=== PATIENT | female | born 1980 | race Caucasian/White ===

== ENCOUNTER 2023-02-24 17:55 | Emergency (ER) | payer SELFPAY ==
[2023-02-24 18:07] VITALS: BP 133/84; PULSE 87; RESP 18; TEMP 36.9; O2SAT 100
--- NOTE | 2023-02-24 18:13 | DI.RAD.S_ITS ---
PROCEDURE: XR SHOULDER RT MIN 2V INDICATIONS: unable to move it normal/pain TECHNIQUE: 3 views of the shoulder were acquired. COMPARISON: None. FINDINGS: Bones: No fractures or dislocations. No suspicious bony lesions. Visualized ribs appear intact. Soft tissues: No suspicious soft tissue calcifications. IMPRESSION: No acute bony abnormality. If there are persistent symptoms or clinical suspicion for pathology, then repeat radiographs or advanced imaging (CT or MRI) may be considered for further evaluation. Dictated by: Cristian Hodge M.D. on 02/24/2023 at 19:32 Approved by: Cristian Hodge M.D. on 02/24/2023 at 19:32
--- NOTE | 2023-02-24 19:56 | ED.GENADULT ---
HPI - General Adult General Chief complaint: Extremity Injury, Upper Stated complaint: unable to use R arm/ pain and tingling Time Seen by Provider: 02/24/23 19:47 Source: patient Mode of arrival: Ambulatory History of Present Illness HPI narrative: Patient is a 42-year-old female who is here for evaluation of right upper arm discomfort. She states that it started just a couple hours ago. There was not 1 specific incident. Before the event she was wrestling with her dog but does not remember injuring it. She states that she now has some tingling in her hand. It is uncomfortable for her to move her arm forward and back and out from her body. She has no neck pain. No elbow pain. She took some ibuprofen and put on a lidocaine patch prior to arrival. No prior injuries to the shoulder. No fevers. Related Data Previous Rx's Medication Instructions Recorded cyclobenzaprine 10 mg tablet 10 mg PO TID PRN muscle spasm #10 02/24/23 tabs hydrocodone 5 mg-acetaminophen 325 1 tab PO Q6H PRN pain #10 tabs 02/24/23 mg tablet Allergies Allergy/AdvReac Type Severity Reaction Status Date / Time acetaminophen AdvReac Palpitation Verified 02/24/23 18:07 s Review of Systems Constitutional Constitutional: Reports system reviewed and no additional complaints, except as documented Musculoskeletal Musculoskeletal: Reports system reviewed and no additional complaints, except as documented Integumentary/Breasts Skin/Breast: Reports system reviewed and no additional complaints, except as documented Neurologic Neurologic: Reports system reviewed and no additional complaints, except as documented Patient History Social History Smoking Status: Current every day smoker Smoking Status: Current every day smoker tobacco type: vaping alcohol intake frequency: holidays/special occasions only Substance Use Type: does not use Exam Initial Vital Signs Initial Vital Signs: Vital Signs Temperature 98.4 F 02/24/23 18:07 Pulse Rate 87 02/24/23 18:07 Respiratory Rate 18 02/24/23 18:07 Blood Pressure 133/84 02/24/23 18:07 Pulse Oximetry 100 02/24/23 18:07 Oxygen Delivery Method Room Air 02/24/23 18:07 Const General: cooperative and No ill appearing Cardio Pulses: radial pulses present on the right Back/Spine/Pelvis Other: No cervical tenderness. Skin General: no rashes or lesions noted Neuro Sensory Exam: no sensory deficits noted Extrem Other: Her right wrist and right elbow are unremarkable. She does not have any tenderness along the clavicle or the AC joint. All of her discomfort seems to be located over the deltoid. It hurts for her to abduct her arm both active and passive. She can flex and extend forward and back in the right shoulder passively with minimal discomfort. Internal rotation of the shoulder causes her discomfort over the deltoid. The pain hips down to where the approximate insertion of the deltoid would be on her forearm. Course Orders Ordered: ED Orders 02/24/23 18:13 XR shoulder RT min 2V Stat Discontinued Medications Hydrocodone Bitart/Acetaminophen (Hydrocodone/Acet 5/325 Prepack) 1 bottle MISC DIRECTED ONE Stop: 02/24/23 20:48 Last Admin: 02/24/23 20:57 Dose: 1 bottle Documented By: AP Cyclobenzaprine HCl (Cyclobenzaprine 10 Mg Prepack) 1 bottle MISC DIRECTED ONE Stop: 02/24/23 20:48 Last Admin: 02/24/23 20:57 Dose: 1 bottle Documented By: AP Hydromorphone HCl (Hydromorphone 1 Mg Inj) 1 mg IM NOW ONE Stop: 02/24/23 19:58 Last Admin: 02/24/23 20:02 Dose: 1 mg Documented By: AP Vital Signs Vital signs: Vital Signs - 8 hr 02/24/23 20:26 Temperature 98.4 F Pulse Rate 76 Respiratory Rate 18 Blood Pressure 133/67 Pulse Oximetry 98 Oxygen Delivery Method Room Air Medical Decision Making Imaging Data Extremity x-ray #1: Radiologist's Impression: PROCEDURE: XR SHOULDER RT MIN 2V INDICATIONS: unable to move it normal/pain TECHNIQUE: 3 views of the shoulder were acquired. COMPARISON: None. FINDINGS: Bones: No fractures or dislocations. No suspicious bony lesions. Visualized ribs appear intact. Soft tissues: No suspicious soft tissue calcifications. IMPRESSION: No acute bony abnormality. If there are persistent symptoms or clinical suspicion for pathology, then repeat radiographs or advanced imaging (CT or MRI) may be considered for further evaluation. [facility] Narrative Medical decision making narrative: She is neurovascularly intact. Her x-ray shows no signs of a fracture. Is somewhat difficult to obtain a full exam of the right shoulder because of the discomfort. I have low suspicion for septic joint is her discomfort seems to be located over the outside of the shoulder and specifically over the deltoid. She has not having any biceps tenderness or triceps tenderness she can flex and extend the right elbow without discomfort. I have low suspicion for rotator cuff tear. Was suspicion for an occult fracture she does not have specific trauma. The plan will be is for right now to treat symptomatically and conservatively. She was given a sling that she can use at home as needed. She was given return precautions and follow-up instructions. She expressed understanding and agreement. Discharge Plan Departure Patient Disposition: Home Clinical Impression: Right shoulder pain Instructions: How To Perform RICE (Rest, Ice, Compress, Elevate) Activity Restrictions/Additional Instructions: Recommend using the pain medicine and muscle relaxers and conservative measures such as heat/ice as needed. You can try to use the sling if it is comfortable for you. Avoid activities that make your symptoms worse. Contact your primary doctor for a follow-up. Return to the emergency department for new or worsening symptoms. Prescriptions: New hydrocodone-acetaminophen 5-325 mg tablet 1 tab PO Q6H PRN (Reason: pain) Qty: 10 0RF cyclobenzaprine 10 mg tablet 10 mg PO TID PRN (Reason: muscle spasm) Qty: 10 0RF Referrals: Miscellaneous,Doctor, MD [Primary Care Provider] - Stand Alone Forms: Patient Portal/API
[2023-02-24] MEDS: HYDROMORPHONE 1 MG INJ IM (20:02)
[2023-02-24 20:26] VITALS: BP 133/67; PULSE 76; RESP 18; TEMP 36.9; O2SAT 98
[2023-02-24] MEDS: CYCLOBENZAPRINE 10 MG PREPACK 1 BOTTLE MISC (20:57)
[2023-02-24] MEDS: HYDROCODONE/ACET 5/325 PREPACK 1 BOTTLE MISC (20:57)
== END 2023-02-24 21:04 | disposition home or self-care (01) ==
PROVIDERS: Emergency Provider Emergency Medicine
DX: M25.511 Pain in right shoulder (principal)
CPT/HCPCS: 73030; 96372; 99283; J1170

== ENCOUNTER → 2024-04-13 09:44 | Outpatient (CLI) | payer OTHER, SELFPAY ==
[2024-04-13 10:49] LABS: Influenza A - CEPHEID Flu A POSITIVE (NEGATIVE); Influenza B - CEPHEID Flu B NEGATIVE (NEGATIVE); Respiratory Syncytial Virus Negative (Negative)
[2024-04-13 10:58] LABS: COVID-19 CEPHEID 4-PLEX PCR Negative (Negative)
== END ==
PROVIDERS: Visit Provider Physician Assistant
DX: R05.1 Acute cough (principal)
CPT/HCPCS: 0241U

== ENCOUNTER → 2024-04-13 11:01 | Outpatient (CLI) | payer OTHER, SELFPAY ==
--- NOTE | 2024-04-13 11:03 | DI.RAD.S_ITS ---
PROCEDURE: XR CHEST 2V INDICATIONS: deep cough x 1 week TECHNIQUE: 2 views of the chest were acquired. COMPARISON: None. FINDINGS: Surgical changes and devices: None. Lungs and pleura: Lungs are clear. No pleural effusions or pneumothorax. Mediastinum: Mediastinal contours are normal. Heart size is normal. Bones and chest wall: No suspicious bony abnormalities. Soft tissues appear unremarkable. IMPRESSION: No acute cardiopulmonary pathology. Dictated by: Eliseo Engle M.D. on 04/14/2024 at 11:54 Approved by: Eliseo Engle M.D. on 04/14/2024 at 11:55
== END ==
PROVIDERS: Referring Provider Physician Assistant; Visit Provider Physician Assistant
DX: J06.9 Acute upper respiratory infection, unspecified (principal); R05.1 Acute cough
CPT/HCPCS: 0241U; 71046

== ENCOUNTER → 2024-05-03 10:56 | Outpatient (CLI) | payer OTHER, SELFPAY ==
--- NOTE | 2024-05-03 10:58 | DI.US.S_ITS ---
PROCEDURE: US THYROID INDICATIONS: GLOBUS SENSATION/EVAL FOR MASSES TECHNIQUE: Real-time scanning was performed of the thyroid gland, with image documentation. COMPARISON: None. FINDINGS: Thyroid: Right lobe measures 4.9 x 1.4 x 2.0 cm. Left lobe measures 4.9 x 1.1 x 1.5 cm. Isthmus is 0.2 cm thick. Echotexture is homogeneous. No focal thyroid nodules. No suspicious lymphadenopathy or masses. IMPRESSION: Normal thyroid ultrasound. No focal mass, thyroid nodules, or adenopathy. Dictated by: Cristian Hodge M.D. on 05/03/2024 at 22:58 Approved by: Cristian Hodge M.D. on 05/03/2024 at 22:59
== END ==
LOC: US 10:57
PROVIDERS: Referring Provider Family Medicine; Visit Provider Family Medicine
DX: F45.8 Other somatoform disorders (principal)
CPT/HCPCS: 76536